=== PATIENT | female | born 1995 | race African-American/Black ===

== ENCOUNTER 2017-11-20 20:28 | Emergency (ER) | payer OTHER ==
[~2017-11-20] VITALS: Ht 170.2 cm; Wt 88.2 kg
[2017-11-21 00:14] VITALS: BP 132/77
== END 2017-11-21 00:14 | disposition home or self-care (01) ==
LOC: EMS 20:30
DX: N61.1 Abscess of the breast and nipple (principal)
CPT/HCPCS: 99281